=== PATIENT | female | born 1945 ===

== ENCOUNTER 2022-04-23 05:50 | Day surgery (SDC) | payer OTHER ==
[~2022-04-23 05:50] MED LIST: BENADRYL25 MG PO; CLARITIN10 M1 PO; SINGULAIR10 MG PO
[2022-04-23] MEDS ORDERED: COLACE100 MG PO (11:36)
[2022-04-23] MEDS ORDERED: ULTRACET PO (11:36)
== END 2022-04-23 12:40 | disposition home or self-care (01) ==
LOC: CIR.AMB 05:50
PROVIDERS: ATTEND Obstetrics & Gynecology
DX: N83.292 Other ovarian cyst, left side (principal); N83.291 Other ovarian cyst, right side; N83.8 Other noninflammatory disorders of ovary, fallopian tube and broad ligament; N85.8 Other specified noninflammatory disorders of uterus; Z20.822 Contact with and (suspected) exposure to COVID-19; Z88.0 Allergy status to penicillin; Z88.6 Allergy status to analgesic agent; I10 Essential (primary) hypertension; E78.5 Hyperlipidemia, unspecified; M19.90 Unspecified osteoarthritis, unspecified site